=== PATIENT | female | born 2000 | race Two or more races ===

== ENCOUNTER 2020-04-01 16:09 | Emergency (ER) | payer MEDICAID ==
[~2020-04-01] VITALS: Ht 160 cm; Wt 61.2 kg
[2020-04-01 16:26] VITALS: BP 114/58
== END 2020-04-01 17:42 | disposition home or self-care (01) ==
LOC: ER 16:09
DX: S83.92XA Sprain of unspecified site of left knee, initial encounter (principal); X50.1XXA Overexertion from prolonged static or awkward postures, initial encounter; Y93.01 Activity, walking, marching and hiking; Y92.89 Other specified places as the place of occurrence of the external cause; Y99.8 Other external cause status
CPT/HCPCS: 73562